=== PATIENT | female | born 1955 | race Caucasian/White ===

== ENCOUNTER 2019-07-27 08:37 | Outpatient (CLI) | payer OTHER, SELFPAY | END 2019-07-27 08:38 | disposition home or self-care (01) | LOC: ANHAUDIO 08:41 | DX: H90.3 Sensorineural hearing loss, bilateral (principal) | CPT/HCPCS: 92557; 92567 ==

== ENCOUNTER 2019-11-03 07:50 | Outpatient (RCR) | payer OTHER, SELFPAY | END 2019-11-03 23:59 | disposition home or self-care (01) | LOC: ANHAUDIO 07:50 | PROVIDERS: PCP Family Medicine | DX: Z46.1 Encounter for fitting and adjustment of hearing aid (principal) | CPT/HCPCS: V5160; V5261 ==

== ENCOUNTER 2020-04-28 07:05 | Outpatient (NON) | payer OTHER, SELFPAY ==
[2020-04-29 12:35] LABS: SARS-CoV-2 RNA PCR Negative
== END 2020-04-28 07:06 ==
PROVIDERS: PCP Family Medicine
DX: Z20.828 Contact with and (suspected) exposure to other viral communicable diseases (principal); Z01.812 Encounter for preprocedural laboratory examination
CPT/HCPCS: 87635; C9803; U0003

== ENCOUNTER → 2020-07-07 08:41 | Outpatient (CLI) | payer OTHER, SELFPAY ==
[2020-07-07 18:19] LABS: SARS-CoV-2 RNA PCR Negative
== END ==
PROVIDERS: PCP Family Medicine
DX: Z01.812 Encounter for preprocedural laboratory examination (principal); Z20.822 Contact with and (suspected) exposure to COVID-19
CPT/HCPCS: C9803; U0003; U0005

== ENCOUNTER 2020-10-03 11:20 | Outpatient (RCR) | payer OTHER, SELFPAY | END 2020-10-03 23:59 | disposition home or self-care (01) | LOC: ANHAUDIO 11:20 | PROVIDERS: PCP Family Medicine; Visit Provider Family Medicine | DX: Z46.1 Encounter for fitting and adjustment of hearing aid (principal) | CPT/HCPCS: 99199 ==